=== PATIENT | female | born 1960 | race Caucasian/White ===

== ENCOUNTER 2017-07-09 15:51 | Emergency (ER) | payer OTHER ==
[~2017-07-09] VITALS: Ht 162.6 cm; Wt 70.0 kg
[2017-07-09 16:23] VITALS: TEMP 36.7; Ht 162.6 cm; Wt 70.0 kg
[2017-07-09] MEDS ORDERED: FLUT0.15 NAE (17:37)
[2017-07-09] MEDS ORDERED: NTRGSL/4 UT (17:37)
[2017-07-09] MEDS ORDERED: PRED20TA2 PO (17:37)
[2017-07-09] MEDS ORDERED: METO25TA3 PO (17:37)
[2017-07-09] MEDS ORDERED: UMEC1INH INH (17:37)
[2017-07-09] MEDS ORDERED: CETI10TA84 PO (17:37)
[2017-07-09] MEDS ORDERED: GABA-112 PO (17:37)
[2017-07-09] MEDS ORDERED: ALBINS/ INH (17:37)
[2017-07-09] MEDS ORDERED: ATV/1 PO (17:37)
[2017-07-09] MEDS ORDERED: ESCI10TA17 PO (17:37)
[2017-07-09] MEDS ORDERED: ROSU20TA PO (17:37)
[2017-07-09] MEDS ORDERED: ZOLP10TA PO (17:37)
[2017-07-09] MEDS ORDERED: OLOP0.1S3 OPB (17:37)
[2017-07-09] MEDS ORDERED: ESCI1TAB10 PO (17:37)
[2017-07-09] MEDS ORDERED: HYDR-5688 PO (17:37)
[2017-07-09] MEDS ORDERED: ADVIN25/60 INH (17:37)
[2017-07-09] MEDS ORDERED: FENO54TA3 PO (17:37)
[2017-07-09] MEDS ORDERED: TOPI100T20 PO (17:37)
[2017-07-09] MEDS ORDERED: CLOP1TAB15 PO (17:37)
[2017-07-09] MEDS ORDERED: AZITTAB PO (17:37)
[2017-07-09] MEDS ORDERED: LAMO100T16 PO (17:37)
[2017-07-09] MEDS ORDERED: ALBU18002 INH (17:37)
[2017-07-09] MEDS ORDERED: FURO-85 PO ×2 (17:37)
--- NOTE | 2017-07-09 17:49 | DIAGNOSTIC IMAGING REPORT ---
R RIBS UNILATERAL WITH PA CHEST (5 views) CLINICAL HISTORY: R sided rib pain s/p fall COMPARISON STUDY: No previous studies for comparison. FINDINGS: The erect chest reveals no pneumothorax. There is no focal pulmonary consolidation. There is right basilar atelectasis. There are old left-sided rib fractures.] Right rib deformities are also likely old. IMPRESSION: 1. Bilateral rib fractures, likely old 2. No evidence of pneumothorax Electronically signed by: Bill Garcia M.D. 07/09/2017 5:47 PM Dictated Date/Time: 07/09/2017 5:45 PM
[2017-07-09 18:13] VITALS: BP 155/89; PULSE 98; O2SAT 98
--- NOTE | 2017-07-10 13:56 | EMERGENCY ROOM VISIT NOTE ---
ED Visit Note First contact with patient: 16:29 Chief Complaint: I hurt my right ribs. History of Present Illness: Ms. Mari is a 56-year-old white female who ambulates into the ED complaining of right sided rib pain. Patient reports she tripped and fell onto a sewing box approximately 10 days ago as she was getting out of bed. She was seen at the [facility] ED and reports x-rays were done and showed no acute fractures but she reports she did not like her treatment there and is still having pain so came to our ED. Currently she reports she is not having any pain at rest but when she takes a deep inspiration or abducts or flexes her right shoulder she is having pain over the posterior and lateral aspect of ribs 5 through 7. She describes these pains as a sharp sensation. She rates her discomfort 10/10. Her pain is nonradiating. Her pain also worsens when she is pushing on her ribs. She has been using her prescribed Vicodin without relief of her discomfort. She also reports she has tried a lidocaine dermatology patch and ice with only minimal relief of her discomfort. She denies any associated symptoms including fevers, chills, sweats, upper respiratory tract symptoms, cough, wheezing, shortness of breath, abdominal pain , nausea, vomiting, decreased appetite, upper extremity weakness/numbness/ tingling. Review of Systems: As noted above in history of present illness. 8 body systems were reviewed and found to be negative as noted above. Past Medical History: Unspecified heart disease, hypertension, unspecified kidney disease, unspecified skin diseases, asthma, bronchitis, pneumonia, bipolar disorder, depression, anxiety. Current Medications: Medications Dose Route/Sig Max Daily Dose Days Date Category Dose Instructions Zithromax Z-Jose M (Azithromycin) 250 Mg Tab 1 Pkt PO UD 07/09/17 Reported COPD RESCUE KIT FOLLOWS: TAKE 2 TABLETS ON FIRST DAY THEN 1 TABLET DAILY UNTIL GONE Prednisone Tab (Prednisone) 20 Mg Tab 20 Mg PO UD PRN 07/09/17 Reported COPD RESCUE KIT FOLLOWS: TAKE 2 TABLETS (40 MG) DAILY FOR 5 DAYS THEN, TAKE 1 TABLET (20 MG) DAILY FOR 5 DAYS Advair Diskus 250/50 60 Dose (Fluticasone Prop/Salmeterol) 1 Ea Aerp 1 Puff INH BID 07/09/17 Reported Topamax (Topiramate) 100 Mg Tab 100 Mg PO BID 07/09/17 Reported Neurontin (Gabapentin) 100 Mg Cap 100 Mg PO TID 07/09/17 Reported Patanol 0.1% Oph (Olopatadine Hcl) 0.1 % Samira 1 Drop OPB BID 07/09/17 Reported Nitrostat (Nitroglycerin) 0.4 Mg Tab 0.4 Mg UT UD PRN 07/09/[address] ONE TABLET UNDER THE TONGUE EVERY 5 MINUTES FOR UP TO 3 DOSES IF NEEDED FOR CHEST PAIN Crestor (Rosuvastatin Calcium) 20 Mg Tab 20 Mg PO DAILY 07/09/17 Reported Toprol-Xl (Metoprolol Succinate) 25 Mg Tabcr 25 Mg PO DAILY 07/09/17 Reported Incruse Ellipta (Umeclidinium [place]) 62.5 Mcg/Inh Inh 1 Puff INH DAILY 07/09/17 Reported Lasix (Furosemide) 20 Mg Tab 20 Mg PO AFTERNOON 07/09/17 Reported Lasix (Furosemide) 20 Mg Tab 40 Mg PO QAM 07/09/17 Reported Flonase Allergy Relief (Fluticasone Propionate (Nasal)) 50 Mcg/Act Spr 2 Sprays JOSEPHINE DAILY 07/09/17 Reported Lofibra (Fenofibrate) 54 Mg Tab 54 Mg PO DAILY 07/09/17 Reported Zyrtec (Cetirizine HCl) 10 Mg Tab 10 Mg PO BID 07/09/17 Reported Proventil 0.083% 2.5MG/3ML (Albuterol Sulf) 2.5 Mg/3 Ml Nebu 2.5 Mg INH Q4-6HRS PRN 07/09/17 Reported Lamictal (Lamotrigine) 100 Mg Tab 200 Mg PO DAILY 07/09/17 Reported Lexapro (Escitalopram Oxalate) 20 Mg Tab 20 Mg PO DAILY 07/09/17 Reported Lexapro (Escitalopram Oxalate) 10 Mg Tab 10 Mg PO DAILY 07/09/17 Reported Ativan (Lorazepam) 1 Mg Tab 1 Mg PO HS 07/09/17 Reported Plavix (Clopidogrel Bisulfate) 75 Mg Tab 75 Mg PO Q2D 07/09/17 Reported Ambien (Zolpidem Tartrate) 10 Mg Tab 10 Mg PO HS 07/09/17 Reported Proair Respiclick (Albuterol Sulfate) 108 Mcg/Act Aer 2 Puffs INH Q4-6HRS PRN 07/09/17 Reported [place] 5MG/325MG (Acetaminophen/Hydrocodone Bitart) Tab 1 Tablet PO BID PRN 07/09/17 Reported Allergies to Medications: Acetaminophen, amoxicillin, morphine, NSAIDs, oxycodone. Social History: Patient is not employed; she feels safe in her home environment ; she admits to tobacco use and denies alcohol use. Physical Examination: Vital Signs: Date Time Temp Pulse Resp B/P (MAP) Pulse Ox O2 Delivery O2 Flow Rate FiO2 07/09/17 18:13 98 20 155/89 98 07/09/17 16:23 36.7 85 18 117/87 95 Room Air GENERAL: 56-year-old female in mild to moderate distress due to pain, nontoxic- appearing, afebrile and hemodynamically stable. NEUROLOGICAL: Awake, alert and oriented to person, place and time. Answering questions appropriately and following commands. Normal gait. Good hand eye coordination. SKIN: Warm, dry and pink. No soft tissue eruptions or trauma noted. HEENT: Atraumatic and normocephalic. BACK: No tenderness over the bony cervical and thoracic spine. No tenderness throughout the cervical and thoracic paraspinous musculature. Full range of motion of the cervical spine. No CVA tenderness. THORAX: Lungs sounds are clear to auscultation and equal bilaterally with symmetrical chest wall. No wheezing, rales or rhonchi. Patient has moderate tenderness over the anterior and lateral aspect of the right sided ribs including 5 through 7. Do not appreciate any bony deformity, bony crepitus, swelling, ecchymosis or subcutaneous air. No increased respiratory effort. HEART: Regular rate and rhythm. No gallops, rubs or murmurs are appreciated. ABDOMEN: Flat, soft and nontender. Positive bowel sounds in all quadrants. No guarding, rigidity or organomegaly. EXTREMITIES: Moves all extremities well on command and with purpose. All distal neurovascular statuses are intact and equal bilaterally. ED Course: Patient is assessed as noted above. Patient's medication list was reviewed. Patient was offered pain medication and refused. PA Chest and Right Rib Series: Were read by myself and the radiologist showing no infiltrates, effusions or pneumothorax. Normal heart silhouette. Patient reports patient has had multiple rib fractures and he felt that most of these were old in nature. Patient was educated about today's findings and instructed on her treatment plan ; she verbalized understanding and agreement with this plan. Clinical Impression: Right sided rib pain. Decision-Making: Initially my differential diagnosis I considered chest contusion, rib fracture, pulmonary contusion and other causes. Disposition: Patient discharged home in stable condition; prior to departure she was reassessed and subjectively reported she was feeling the same. Plan: Patient was encouraged to continue her current medications as prescribed. Patient was encouraged use ice on the area 5 or 6 times a day. Patient was instructed on deep breathing exercises 3 doses the risk of pneumonia. Patient is encouraged to follow-up with her PCP for recheck. Patient is encouraged return the ED for uncontrolled pain, coughing up blood, fevers, shortness of breath or any new/concerning symptoms.
== END 2017-07-09 18:15 | disposition home or self-care (01) ==
LOC: C.EDB 15:52 → C.EDD 18:15
DX: R07.81 Pleurodynia (principal); I51.9 Heart disease, unspecified; I10 Essential (primary) hypertension; N18.9 Chronic kidney disease, unspecified; J45.909 Unspecified asthma, uncomplicated; F31.9 Bipolar disorder, unspecified; F32.9 Major depressive disorder, single episode, unspecified; F41.9 Anxiety disorder, unspecified; F17.200 Nicotine dependence, unspecified, uncomplicated